=== PATIENT | female | born 2000 | race Two or more races ===

== ENCOUNTER 2020-07-27 18:00 | Outpatient (REF) | payer OTHER, SELFPAY | END 2020-07-27 18:01 | disposition home or self-care (01) | LOC: HO.LAB 18:00 | PROVIDERS: Visit Provider Internal Medicine | DX: Z20.828 Contact with and (suspected) exposure to other viral communicable diseases (principal) | CPT/HCPCS: 87635 ==

== ENCOUNTER 2020-08-16 11:55 | Outpatient (REF) | payer OTHER, SELFPAY | END 2020-08-16 11:56 | disposition home or self-care (01) | LOC: HO.LAB 11:55 | PROVIDERS: PCP Physician Assistant; Visit Provider Internal Medicine | DX: Z20.828 Contact with and (suspected) exposure to other viral communicable diseases (principal) | CPT/HCPCS: 87635 ==

== ENCOUNTER → 2020-09-13 07:57 | Outpatient (BNVA) | payer OTHER, SELFPAY | PROVIDERS: Visit Provider Advanced Practice Midwife | DX: Z76.89 Persons encountering health services in other specified circumstances (principal) ==

== ENCOUNTER 2020-09-25 16:03 | Emergency (ER) | payer OTHER, SELFPAY ==
[2020-09-25 16:34] VITALS: BP 110/71; PULSE 78; RESP 16; TEMP 36.5; O2SAT 99; BMI 26.2
--- NOTE | 2020-09-25 17:40 | ED.GENADULT ---
HPI - General Adult General Chief complaint: General Medical Stated complaint: ABSCESS Time Seen by Provider: 09/25/20 17:28 Source: patient Mode of arrival: ambulatory Limitations: no limitations History of Present Illness HPI narrative: patient comes to emergency room complaining of a circular rash in her upper arm. Patient states it has been present for 1 week, it is slightly itchy, nonpainful. Patient is known to have dogs at home. patient denies fever chills MD complaint: Rash Related Data Previous Rx's Medication Instructions Recorded clotrimazole [Lotrimin AF 1 appl TOPICAL TID #28.4 g 09/25/20 (clotrimazole)] Allergies Allergy/AdvReac Type Severity Reaction Status Date / Time No Known Allergies Allergy Verified 09/13/20 08:09 [No Known Allergies*] Review of Systems Review of Systems: Constitutional : No Weight loss, No Fever, No Chills, No Night Sweats, No Fatigue, No Malaise ENT/Mouth : No Hearing loss, No Ear Pain, No Nasal Congestion, No Sinus Pain, No Hoarseness, No sore throat, No Rhinorrhea, No Swallowing Difficulty Eyes: No Eye Pain, No Swelling, No Redness, No Foreign Body, No Discharge, No Vision Changes Cardiovascular : No Chest Pain, No SOB, No Dyspnea on Exertion, No Orthopnea, No Edema, No Palpitations Respiratory : No Cough, No Sputum, No Wheezing, No Smoke Exposure, No Dyspnea Gastrointestinal : No Nausea, No Vomiting, No Diarrhea, No Constipation, No abdominal Pain, No Hematochezia, No Melena Genitourinary : no irregular bleeding, No Dysuria, No Urinary Frequency, No Hematuria, No Urinary Incontinence, No Urgency, No Flank Pain, No Urinary Flow Changes, No Hesitancy Musculoskeletal : No joint pain, No Myalgias, No Joint Swelling Skin : circular rash and right upper arm Neuro : No Weakness, No Numbness, No Paresthesias, No Loss of Consciousness, No Dizziness, No Headache Psych : No Anxiety/Panic, No Depression, No SI/HI/AH/VH, No Social Issues, Heme/Lymph: No Bruising, No Bleeding,No Lymphadenopathy Endocrine : No Polyuria, No Polydipsia, No Temperature Intolerance PMFSH Past Medical History Medical History (Updated 09/25/20 @ 17:43 by Mitzy Mims MD) Constipation Surgical History No pertinent past surgical history Family History Family History Father Diabetes Mother Hypertension Social History Social History (Updated 09/13/20 @ 08:10 by Nelsy Esparza) Alcohol intake: never Smoking Status: Never smoker Advance Directives: No Advance Directives Information Provided: No Gender identity: female Physical Exam Vital Signs: Vital Signs: Last Vital Signs Temp 97.7 F 09/25/20 16:34 Pulse 78 09/25/20 16:34 Resp 16 09/25/20 16:34 BP 110/71 09/25/20 16:34 Pulse Ox 99 09/25/20 16:34 Body Mass Index 26.2 Appearance: Alert. Oriented X3. No acute distress. Eyes: Pupils equal, round and reactive to light. ENT: Pharynx normal. Neck: Normal inspection. Neck supple. No lymph nodes noted. No crepitus CVS: Normal heart rate and rhythm. Pulses normal. Normal S1 and S2 Respiratory: No respiratory distress. Breath sounds normal. No Wheezing. No rales Abdomen: Soft and nontender. No rigidity. No distention. good BS x4 Skin: circular rash in right upper arm, with erythematous well-demarcated [place] Extremities: No lower extremity edema. No lower extremity edema. No Lacerations. No Rash Neuro: Oriented X 3. No motor deficit. No sensory deficit. Moving all extermities. No slurred speech. Course Course Course Narrative: I discussed the physical exam with the patient, patient's exam is likely consistent with ringworm. I discussed with the patient that she should check her house pets as well. Discussed with the patient that it can be contagious, not to share towels with anyone Discharge Plan Discharge Clinical Impression: Ringworm of body Patient Disposition: Home, Self-Care Instructions: Tinea Corporis (ED) Additional Instructions: he will take 1-3 weeks to heal, please check your house pets for similar rash Prescriptions: New clotrimazole [Lotrimin AF (clotrimazole)] 1 % cream 1 appl topical TID Qty: 28.4 RF: 0
== END 2020-09-25 18:00 | disposition home or self-care (01) ==
PROVIDERS: Emergency Provider Emergency Medicine; PCP Physician Assistant
DX: B35.4 Tinea corporis (principal)
CPT/HCPCS: 99283

== ENCOUNTER 2021-07-05 16:50 | Emergency (ER) | payer OTHER, SELFPAY ==
--- NOTE | ~2021-07-05 | CT_ITS ---
EXAMINATION: CT ABDOMEN AND PELVIS WITH CONTRAST CLINICAL INFORMATION: periumbilicul pain, r/o acute appy COMPARISON: None. TECHNIQUE: Multidetector volumetric imaging was performed from the superior aspect of the liver through the pubic symphysis following administration of 85 cc of Omnipaque intravenous contrast Sagittal and coronal reformatted images were obtained on the technologist workstation.. This CT examination was performed using dose optimization techniques as appropriate, variously including the following: *Automated exposure control *Adjustment of mA and/or kV according to patient size (this includes techniques or standardized protocols for targeted exams where dose is matched to indication/reason for exam; i.e. extremities or head) *Use of iterative reconstruction technique DLP: 458 mGy-cm FINDINGS: LUNG BASES: The visualized lung bases are unremarkable. LIVER, GALLBLADDER, AND BILIARY TREE: The liver is normal in size, shape, and attenuation. No focal hepatic lesion or biliary ductal dilatation is present. The gallbladder is contracted but otherwise unremarkable with no evidence of radiopaque gallstones, gallbladder wall thickening, or obvious pericholecystic inflammatory changes. PANCREAS: Unremarkable. SPLEEN: Unremarkable. ADRENAL GLANDS: Unremarkable. KIDNEYS AND URETERS: The kidneys are normal in size, shape, and attenuation. No hydronephrosis, hydroureter, or calculi seen. No perinephric stranding. BLADDER: Unremarkable. GASTROINTESTINAL TRACT: Normal-appearing appendix in the right lower quadrant. No periappendiceal inflammatory changes. ABDOMINAL WALL: No significant hernia is appreciated. LYMPHOVASCULAR STRUCTURES: No lymphadenopathy. The aorta is unremarkable. PELVIC VISCERA: Small amount of complex free fluid in the dependent pelvis. Physiologic changes seen within the adnexa with a 2.9 cm right adnexal cyst. OSSEOUS STRUCTURES: Unremarkable. CT/CT abdomen pelvis w con IMPRESSION: Small amount of complex fluid layering in the dependent pelvis is suggestion of increased density along the dependent-most aspect. This could represent a small amount of blood products possibly due to a hemorrhagic cyst. There is a 2.9 cm right adnexal cyst noted. Normal-appearing appendix in the right lower quadrant.
[2021-07-05 18:44] VITALS: BP 122/62; PULSE 66; RESP 16; TEMP 36.3; O2SAT 99; BMI 22.3
[2021-07-05 19:37] LABS: MANUAL DIFF FLAG NO
[2021-07-05 19:38] LABS: Basophils Absolute Auto 0.1 X10*3/uL (0.0-0.2); Basophils Percent Auto 0.7 % (0-2); Eosinophils Absolute Auto 0.3 X10*3/uL (0.0-0.4); Eosinophils Percent Auto 3.6 % (0-4); Hemoglobin 13.5 g/dl (12.0-16.0); Imm Gran Abs Auto 0.02 X10*3/uL (0.00-0.03); Imm Gran Pct Auto 0.3 % (0.0-0.4); Lymphocytes Absolute Auto 2.9 X10*3/uL (1.2-4.9); Lymphocytes Percent Auto 38.7 % (20-40); Mean Corpuscular HGB Conc 33.8 g/dl (31.0-35.0); Mean Corpuscular Hemoglobin 29.8 pg (27.0-33.0); Mean Corpuscular Volume 88.3 fL (80-98); Mean Platelet Volume 11.4 fL (9.4-12.3); Monocytes Absolute Auto 0.5 X10*3/uL (0.1-1.2); Neutrophils Absolute Auto 3.7 X10*3/uL (2.0-8.3); Neutrophils Percent Auto 49.7 % (45-73); Platelet Count 223 X10*3/uL (160-400); Red Blood Count 4.53 X10*6/uL (4.20-5.50); Red Cell Distribution Width 11.9 % (11.0-16.0); White Blood Count 7.5 X10*3/uL (4.8-10.8)
[2021-07-05 19:52] LABS: Alanine Aminotransferase 35 U/L (0-31); Albumin Level 4.5 g/dL (3.5-5.0); Alkaline Phosphatase 53 U/L (39-117); Anion Gap 12 (12-20); Aspartate Amino Transferase 37 U/L (5-31); Bilirubin Total 0.4 mg/dL (0.0-1.0); Blood Urea Nitrogen 16 mg/dL (9-16); Calcium 9.5 mg/dL (8.4-10.2); Carbon Dioxide 26 mmol/L (22-29); Chloride 107 mmol/L (96-108); Creatinine Clr Calc Pharmacy 96.8; Estimated Glomerular Filt Rate > 60; Glucose Random 82 mg/dL (60-115); Potassium 4.3 mmol/L (3.3-5.1); Sodium 141 mmol/L (135-145); Total Protein 7.4 g/dL (6.5-8.0)
[2021-07-05 19:53] LABS: Appearance Urine HAZY; Color Urine YELLOW; Glucose Urine UA NEG (NEG); Leukocyte Esterase Urine 2+ (NEG); Nitrite Urine NEG (NEG); PH 6.5 (5.0-8.0); Specific Gravity - Urine 1.015 (1.005-1.025); UACC Culture Trigger YES; Urine Blood NEG (NEG); Urine Ketones NEG (NEG); Urine Protein NEG (NEG-TRACE)
[2021-07-05 20:05] LABS: Squamous Epithelial Cell Urine 2+ /LPF
[2021-07-05 20:06] LABS: Bacteria Urine 1+ /LPF; RBC Urine 0 /HPF (0)
[2021-07-05] MEDS: Famotidine/PF 20 MG/2 ML VIAL IVPUSH (20:07)
[2021-07-05] MEDS: Morphine Sulfate 2 MG/ML CARTRIDGE IVPUSH (20:07)
--- NOTE | 2021-07-05 20:22 | ED_ITS ---
HPI - Abdominal Pain General Chief Complaint: Abdominal Pain Stated Complaint: abdominal pain Time Seen by Provider: 07/05/21 19:30 Source: patient Mode of arrival: ambulatory Limitations: no limitations History of Present Illness HPI narrative: 21-year-old female previously healthy here with complaints of abdominal pain around her belly button since last evening now migrating to her lower abdomen. She has had some nausea but denies vomiting. No fevers or chills or urinary symptoms. No diarrhea or constipation. Related Data Previous Rx's Medication Instructions Recorded ibuprofen 600 mg tablet 600 mg PO Q6H PRN #20 tab 07/05/21 oxycodone 5 mg tablet 5 mg PO Q8H PRN #5 tab 07/05/21 Allergies Allergy/AdvReac Type Severity Reaction Status Date / Time No Known Allergies Allergy Verified 04/11/21 14:30 [No Known Allergies*] Review of Systems Review of Systems Yes all other systems are reviewed and are negative Constitutional: Reports no additional constitutional complaints, Denies body ache(s), Denies chills, Denies fever(s), Denies headache(s) and Denies weakness Eyes: Reports no additional eye complaints and Denies change in vision Reports system reviewed and no additional complaints, except as documented, Denies dizziness, Denies headache(s), Denies nasal congestion, Denies nasal discharge and Denies neck pain Cardiovascular: Reports no additional cardiovascular complaints, Denies chest pain, Denies leg edema and Denies dyspnea Respiratory: Reports no additional respiratory complaints, Denies cough and Denies dyspnea Gastrointestinal: Reports no additional gastrointestinal complaints, Reports abdominal pain, Denies diarrhea, Denies nausea and Denies vomiting Genitourinary: Reports no additional female genitourinary complaints and Denies urinary incontinence Musculoskeletal: Reports no additional musculoskeletal complaints, Denies back pain, Denies arthralgias, Denies joint swelling, Denies neck pain, Denies numbness and Denies tingling Skin/Breast: Reports system reviewed and no additional complaints, except as docu and Denies rash Reports system reviewed and no additional complaints, except as documented, Denies Abnormal speech present, Denies dizziness, Denies headache(s), Denies numbness, Denies tingling and Denies weakness Physical Exam Vital Signs: Vital Signs: Last Vital Signs Temp 97.4 F 07/05/21 18:44 Pulse 66 07/05/21 18:44 Resp 16 07/05/21 18:44 BP 122/62 07/05/21 18:44 Pulse Ox 99 07/05/21 18:44 Body Mass Index 22.3 Const: General: cooperative, healthy appearing, comfortable and no acute distress Orientation/consciousness: patient oriented x3 Limitations: no limitations HENMT: Head: Yes normal to inspection Ears: hearing grossly normal bilaterally General nose exam: Normal external nose present Face and sinus: Yes normal facial exam Mouth: Normal oral and palatal mucosa present Throat: Yes posterior oropharynx normal Eyes: General: appearance normal, both eyes and all related structures Pupils: Equal, round and reactive pupils present Neck: Neck: Yes normal visual inspection Chest: Chest palpation & inspection: normal inspection of the chest Resp: Effort & Inspection: normal respiratory effort Auscultation: clear to auscultation bilaterally Cardio: Rate: regular rate Rhythm: regular rhythm Peripheral pulses: Peripheral pulses 2+ throughout GI: Inspection: Yes normal to inspection Palpation (GI): Soft to palpation and Tenderness to palpation present (GI) (Periumbilical with guarding, right lower) Auscultation: normal bowel sounds Back/Spine/Pelvis: Thoracic/Lumbar Spine: thoracic and lumbar spine normal to inspection Skin: General skin exam: no rashes or lesions noted Neuro: General: patient oriented x3, no focal motor deficits and normal sensation to monofilament Cranial nerves: Yes Equal, round and reactive pupils present Cognition (Neuro): normal cognition Speech: No Abnormal speech present Gait exam (Neuro): Normal gait present Motor exam (neuro): 5/5 motor strength present throughout Extrem: General: Yes normal to inspection, Yes no pedal edema and Yes no calf tenderness Course Course Course Narrative: 21-year-old female here with complaints of periumbilical pain since last evening now migrating to the right lower abdomen. On exam has tenderness. Will check labs, UA, urine and CT scan. 2200-CT shows IMPRESSION: Small amount of complex fluid layering in the dependent pelvis is suggestion of increased density along the dependent-most aspect. This could represent a small amount of blood products possibly due to a hemorrhagic cyst. There is a 2.9 cm right adnexal cyst noted. ? Normal-appearing appendix in the right lower quadrant. Labs and urine unremarkable. Pain resolved. Tolerating p.o. Will refer to Gynecology for follow-up. Reviewed worrisome signs symptoms of when to return to the emergency department. Comfortable discharge home. MDM - Abdominal Pain Differential Diagnosis Differential diagnosis: Likely acute appendicitis Medical Records Attestation: I reviewed the patient's medical records. Lab Data Attestation: I reviewed the patient's lab results. Result diagrams: 07/05/21 19:26 07/05/21 19:26 Labs: Lab Results 07/05/21 07/05/21 07/05/21 Range/Units 19:26 19:26 19:48 WBC 7.5 (4.8-10.8) X10*3/uL RBC 4.53 (4.20-5.50) X10*6/uL Hgb 13.5 (12.0-16.0) g/dl Hct 40.0 (37-47) % MCV 88.3 (80-98) fL MCH 29.8 (27.0-33.0) pg MCHC 33.8 (31.0-35.0) g/dl RDW 11.9 (11.0-16.0) % Plt Count 223 (160-400) X10*3/uL MPV 11.4 (9.4-12.3) fL Immature Gran % (Auto) 0.3 (0.0-0.4) % Neut % (Auto) 49.7 (45-73) % Lymph % (Auto) 38.7 (20-40) % [place] % (Auto) 7.0 (2-11) % Eos % (Auto) 3.6 (0-4) % Baso % (Auto) 0.7 (0-2) % Lymph # (Auto) 2.9 (1.2-4.9) X10*3/uL [place] # (Auto) 0.5 (0.1-1.2) X10*3/uL Eos # (Auto) 0.3 (0.0-0.4) X10*3/uL Baso # (Auto) 0.1 (0.0-0.2) X10*3/uL Abs Immat Gran (auto) 0.02 (0.00-0.03) X10*3/uL Absolute Neuts (auto) 3.7 (2.0-8.3) X10*3/uL Absolute Nucleated RBC 0.000 (0.0-0.012) X10*3/uL Nucleated RBC % (auto) 0.0 (0.0-0.2) /100WBC Sodium 141 (135-145) mmol/L Potassium 4.3 (3.3-5.1) mmol/L Chloride 107 (96-108) mmol/L Carbon Dioxide 26 (22-29) mmol/L Anion Gap 12 (12-20) BUN 16 (9-16) mg/dL Creatinine 0.78 (0.5-1.4) mg/dL Estim Creat Clear Calc 96.8 Estimated GFR > 60 Random Glucose 82 (60-115) mg/dL Calcium 9.5 (8.4-10.2) mg/dL Total Bilirubin 0.4 (0.0-1.0) mg/dL Direct Bilirubin (0.0-0.5) mg/dL AST 37 H (5-31) U/L ALT 35 H (0-31) U/L Alkaline Phosphatase 53 (39-117) U/L Total Protein 7.4 (6.5-8.0) g/dL Albumin 4.5 (3.5-5.0) g/dL Lipase (8-78) U/L Urine Color YELLOW Urine Appearance HAZY Urine pH 6.5 (5.0-8.0) Ur Specific [place] 1.015 (1.005-1.025) Urine Protein NEG (NEG-TRACE) MG/DL Urine Glucose (UA) NEG (NEG) MG/DL Urine Ketones NEG (NEG) MG/DL Urine Blood NEG (NEG) Urine Nitrite NEG (NEG) Ur Leukocyte Esterase 2+ H (NEG) Urine RBC 0 (0) /HPF Urine WBC 1-4 (0-4) /HPF Ur Squamous Epith Cells 2+ /LPF Urine Bacteria 1+ /LPF Urine Test (NEGATIVE) 07/05/21 07/05/21 Range/Units 20:06 20:32 WBC (4.8-10.8) X10*3/uL RBC (4.20-5.50) X10*6/uL Hgb (12.0-16.0) g/dl Hct (37-47) % MCV (80-98) fL MCH (27.0-33.0) pg MCHC (31.0-35.0) g/dl RDW (11.0-16.0) % Plt Count (160-400) X10*3/uL MPV (9.4-12.3) fL Immature Gran % (Auto) (0.0-0.4) % Neut % (Auto) (45-73) % Lymph % (Auto) (20-40) % [place] % (Auto) (2-11) % Eos % (Auto) (0-4) % Baso % (Auto) (0-2) % Lymph # (Auto) (1.2-4.9) X10*3/uL [place] # (Auto) (0.1-1.2) X10*3/uL Eos # (Auto) (0.0-0.4) X10*3/uL Baso # (Auto) (0.0-0.2) X10*3/uL Abs Immat Gran (auto) (0.00-0.03) X10*3/uL Absolute Neuts (auto) (2.0-8.3) X10*3/uL Absolute Nucleated RBC (0.0-0.012) X10*3/uL Nucleated RBC % (auto) (0.0-0.2) /100WBC Sodium (135-145) mmol/L Potassium (3.3-5.1) mmol/L Chloride (96-108) mmol/L Carbon Dioxide (22-29) mmol/L Anion Gap (12-20) BUN (9-16) mg/dL Creatinine (0.5-1.4) mg/dL Estim Creat Clear Calc Estimated GFR Random Glucose (60-115) mg/dL Calcium (8.4-10.2) mg/dL Total Bilirubin 0.4 (0.0-1.0) mg/dL Direct Bilirubin 0.2 (0.0-0.5) mg/dL AST 34 H (5-31) U/L ALT 33 H (0-31) U/L Alkaline Phosphatase 49 (39-117) U/L Total Protein 6.8 (6.5-8.0) g/dL Albumin 4.2 (3.5-5.0) g/dL Lipase 33 (8-78) U/L Urine Color Urine Appearance Urine pH (5.0-8.0) Ur Specific [place] (1.005-1.025) Urine Protein (NEG-TRACE) MG/DL Urine Glucose (UA) (NEG) MG/DL Urine Ketones (NEG) MG/DL Urine Blood (NEG) Urine Nitrite (NEG) Ur Leukocyte Esterase (NEG) Urine RBC (0) /HPF Urine WBC (0-4) /HPF Ur Squamous Epith Cells /LPF Urine Bacteria /LPF Urine Test NEGATIVE (NEGATIVE) Imaging Data CT scan - abdomen: Attestation: I personally reviewed and interpreted this imaging study as follows: Radiologist's impression: IMPRESSION: Small amount of complex fluid layering in the dependent pelvis is suggestion of increased density along the dependent-most aspect. This could represent a small amount of blood products possibly due to a hemorrhagic cyst. There is a 2.9 cm right adnexal cyst noted. ? Normal-appearing appendix in the right lower quadrant. Discharge Plan Discharge Clinical Impression: Hemorrhagic cyst Patient Disposition: Home, Self-Care Instructions: Ovarian Cyst (ED) Additional Instructions: Follow-up with gynecology Heat to the abdomen Prescriptions: New ibuprofen 600 mg tablet 600 mg PO Q6H PRN (Reason: pain) Qty: 20 RF: 0 oxycodone 5 mg tablet 5 mg PO Q8H PRN (Reason: pain) Qty: 5 RF: 0 Referrals: Jone Atwood MD [Physician] - 2 days Stand Alone Forms: Work/School Release Interventions: ED Discharge Assessment Last Done: 07/05/21 22:02 Discharge Date/Time: 07/05/21 22:03 Print Language: [place] [facility] Past Medical History Attestation statement: The following information was validated with the patient. Source: old records reviewed and nursing notes reviewed Medical History Constipation Family History Family History Father Diabetes Mother Hypertension Other Substance abuse Social History Social History Housing: Apartment Alcohol intake: never Patient Tobacco Use Status: Never used Tobacco e-Cigarette/Vaping Use: Never Used Second Hand Smoke Exposure: No Advance Directives: No Advance Directives Information Provided: No Patient : No service: No Current occupational status: employed Current occupation: [employer] Gender identity: Female
[2021-07-05 20:35] LABS: Alanine Aminotransferase 33 U/L (0-31); Albumin Level 4.2 g/dL (3.5-5.0); Alkaline Phosphatase 49 U/L (39-117); Aspartate Amino Transferase 34 U/L (5-31); Bilirubin Direct 0.2 mg/dL (0.0-0.5); Bilirubin Total 0.4 mg/dL (0.0-1.0); Lipase 33 U/L (8-78); Total Protein 6.8 g/dL (6.5-8.0)
[2021-07-05 20:47] LABS: UPreg QC Valid YES; Urine Pregnancy NEGATIVE (NEGATIVE)
[2021-07-05] MEDS: iohexoL 350 MG/ML 100 ML INFUS..BTL IV (21:12)
== END 2021-07-05 22:03 | disposition home or self-care (01) ==
PROVIDERS: Nurse Practitioner Family; Emergency Provider Emergency Medicine Emergency Medical Services; PCP Physician Assistant
DX: R10.9 Unspecified abdominal pain (principal); N94.89 Other specified conditions associated with female genital organs and menstrual cycle; N83.8 Other noninflammatory disorders of ovary, fallopian tube and broad ligament; Z79.899 Other long term (current) drug therapy
CPT/HCPCS: 36415; 74177; 80053; 80076; 81001; 81025; 82248; 83690; 85025; 87086; 96374; 96375; 99284; J2270; Q9967

== ENCOUNTER 2021-08-09 08:06 | Outpatient (REF) | payer OTHER, SELFPAY ==
[2021-08-09 14:13] LABS: CT PCR NOT DETECTED (Not Detect.); NG PCR NOT DETECTED (Not Detect.)
== END 2021-08-09 08:07 | disposition home or self-care (01) ==
LOC: HO.LAB 08:06
PROVIDERS: PCP Physician Assistant; Visit Provider Obstetrics & Gynecology
DX: Z11.3 Encounter for screening for infections with a predominantly sexual mode of transmission (principal); N83.209 Unspecified ovarian cyst, unspecified side; R79.89 Other specified abnormal findings of blood chemistry
CPT/HCPCS: 81003; 81025; 87491; 87591; 99212

== ENCOUNTER 2021-08-29 11:19 | Outpatient (REF) | payer OTHER, SELFPAY ==
--- NOTE | ~2021-08-29 | US_ITS ---
EXAMINATION: US PELVIS CLINICAL INFORMATION: Follow-up ovarian cyst. COMPARISON: CT abdomen and pelvis from 07/05/2021 TECHNIQUE: Sonographic imaging of the pelvis was performed using a transabdominal transducer. The registered vascular technologist (rvt) reports that the patient refused transvaginal imaging. FINDINGS: Uterus: The anteflexed, anteverted uterus measures 7.3 x 3.5 x 5.4 cm (cervix to fundus x AP x transverse dimensions). The myometrial echotexture is normal. No uterine mass. The endometrium has normal, homogeneous echotexture and measures 1.1 cm AP. Adnexa: The ovaries are normal. The right ovary measures 3.9 x 1.7 x 2.9 cm, volume of 9.8 mL. A partially collapsed corpus luteum of the right ovary measures up to 1.3 cm (image 51 of 102, series 2). The left ovary measures 4.2 x 1.8 x 3.3 cm, volume of 13 mL. No ovarian mass. Color Doppler images show evidence of arterial flow within each ovary. Small amount of free fluid is present in the pelvis. US/US pelvic complete IMPRESSION: The uterus and ovaries are sonographically normal.
== END 2021-08-29 11:20 | disposition home or self-care (01) ==
LOC: HO.US 11:19
PROVIDERS: PCP Physician Assistant; Visit Provider Obstetrics & Gynecology
DX: N83.209 Unspecified ovarian cyst, unspecified side (principal)
CPT/HCPCS: 76856

== ENCOUNTER → 2021-09-12 15:47 | Outpatient (BNVA) | payer OTHER, SELFPAY | PROVIDERS: Visit Provider Obstetrics & Gynecology | DX: N83.209 Unspecified ovarian cyst, unspecified side (principal) | CPT/HCPCS: 99212 ==

== ENCOUNTER 2021-12-28 07:27 | Outpatient (REF) | payer OTHER, SELFPAY ==
[2021-12-28 08:59] LABS: INTERNATIONAL NORM RATIO 1.1 (0.9-1.1); Prothrombin Time 12.1 SEC (9.9-13.0)
[2021-12-28 10:12] LABS: Alanine Aminotransferase 71 U/L (0-31); Albumin Level 4.2 g/dL (3.5-5.0); Alkaline Phosphatase 51 U/L (39-117); Anion Gap 10 (12-20); Aspartate Amino Transferase 255 U/L (5-31); Bilirubin Direct 0.2 mg/dL (0.0-0.5); Bilirubin Total 0.6 mg/dL (0.0-1.0); Blood Urea Nitrogen 13 mg/dL (9-16); Calcium 9.1 mg/dL (8.4-10.2); Carbon Dioxide 26 mmol/L (22-29); Chloride 106 mmol/L (96-108); Estimated Glomerular Filt Rate > 60; Glucose Random 73 mg/dL (60-115); Potassium 4.6 mmol/L (3.3-5.1); Sodium 137 mmol/L (135-145); Total Protein 6.9 g/dL (6.5-8.0)
[2021-12-28 10:33] LABS: Ferritin 64 ng/mL (10-122); Gamma Glutamyl Transpeptidase 11 U/L (7-33)
[2021-12-28 10:41] LABS: HBS Num1 20.24 mIU/mL (0-7.99); HBc Num1 0.06 S/CO (0.00-0.79); Hepatitis B Core Antibody Nonreactive (Nonreactive); ~HepC Num1 0.07 S/CO (0.00-0.79); ~Hepatitis B Surface Antibody REACTIVE (Nonreactive); ~Hepatitis C Antibody Nonreactive (Nonreactive)
[2021-12-28 10:42] LABS: HBsAGNum1 0.22 S/CO (0.00-0.99); HIV AB/AG Nonreactive (Nonreactive); HIV Num 1 0.06 S/CO (0.00-0.99); Hepatitis B Surface Antigen Negative (Negative)
[2021-12-29 09:02] LABS: Hepatitis A Antibody IgM 0.17 Index (0-0.79); ~Hepatitis A Antibody IgM Nonreactive (Nonreactive)
[2021-12-30 11:41] LABS: Ceruloplasmin 28 mg/dL (18-53)
[2022-01-01 13:21] LABS: Alpha Fetoprotein 2.3 ng/mL
[2022-01-02 13:42] LABS: Smooth Muscle Antibody <20 U (<20)
[2022-01-02 15:11] LABS: Mitochondrial Antibodies NEGATIVE (NEGATIVE)
== END 2021-12-28 07:28 | disposition home or self-care (01) ==
LOC: HO.LAB 07:27
PROVIDERS: PCP Physician Assistant; Referring Provider Physician Assistant; Visit Provider Nurse Practitioner
DX: R79.89 Other specified abnormal findings of blood chemistry (principal); K21.9 Gastro-esophageal reflux disease without esophagitis; R19.7 Diarrhea, unspecified
CPT/HCPCS: 36415; 80053; 82105; 82248; 82390; 82728; 82977; 85610; 86015; 86255; 86256; 86704; 86706; 86709; 86803; 87340; 87389; 99202

== ENCOUNTER 2022-01-23 08:56 | Outpatient (REF) | payer OTHER, SELFPAY | END 2022-01-23 08:57 | disposition home or self-care (01) | LOC: HO.US 08:56 | PROVIDERS: Visit Provider Nurse Practitioner | DX: Z13.89 Encounter for screening for other disorder (principal) ==

== ENCOUNTER 2022-02-13 10:29 | Outpatient (REF) | payer OTHER, SELFPAY ==
--- NOTE | ~2022-02-13 | US_ITS ---
EXAMINATION: US COMPLETE ABDOMEN WITH LIVER ELASTOGRAPHY CLINICAL INFORMATION: Elevated liver enzymes COMPARISON: No prior studies available for comparison. TECHNIQUE: Real-time imaging of the abdominal viscera. Noninvasive ultrasound liver fibrosis assessment is performed using Nate ElastPQ point quantification shear wave elastography (2D-SWE) with a C5-2 MHz transducer. Multiple elastography samples are obtained. FINDINGS: PANCREAS: The visualized portion of the pancreas head and body are normal, portion of the pancreatic body and tail, not visualized are obscured by bowel gas. ABDOMINAL AORTA: The proximal, middle, and distal aortic segments are normal in caliber. INFERIOR VENA CAVA: Visualized portions are normal. LIVER: Mildly echogenic liver suggesting hepatic steatosis, no ultrasound evidence of focal liver lesion. The right lobe measures 13 cm in length. The left lobe measures 11 cm in length. Portal flow is hepatopedal Shear wave liver elastography median stiffness is 1.85 m/s (reference: normal median stiffness is 1.3 m/s or less). IQR/median stiffness to assess sampling precision is 0.14 (reference: good quality data set is IQR/median stiffness of 0.15 or less). GALLBLADDER: Normal. The gallbladder is physiologically distended without evidence of stones, sludge, polyps, wall thickening or pericholecystic fluid. COMMON BILE DUCT: Normal in caliber measuring 0.2 cm in diameter. RIGHT KIDNEY: Normal. No hydronephrosis. No renal calculi or focal parenchymal lesions. The kidney measures 12.6 cm in maximum dimension. LEFT KIDNEY: Normal. No hydronephrosis. No renal calculi or focal parenchymal lesions. The kidney measures 12.3 cm in maximum dimension. SPLEEN: Normal. The spleen measures 11 cm in maximum dimension. FREE FLUID: None. US/US abdomen comp w elastography IMPRESSION: 1. . Increased echogenicity of the liver parenchyma, this can be seen in the setting of hepatic steatosis or liver parenchymal disease. 2. Liver elastography: 1.85 Measurements are suggestive of compensated advanced chronic liver disease but need further test for confirmation. REFERENCE: Society of Radiologists in Ultrasound Liver Stiffness Thresholds (2019): LIVER STIFFNESS THRESHOLDS: *Liver Stiffness equal or less than 1.3 m/s: High probability of being normal. *Liver Stiffness less than 1.7 m/s: In the absence of other known clinical signs, rules out compensated advanced chronic liver disease. *Liver Stiffness 1.7-2.1 m/s: Suggestive of compensated advanced chronic liver disease but need further test for confirmation. *Liver Stiffness over 2.1 m/s: Rules in compensated advanced chronic liver disease. *Liver Stiffness over 2.4 m/s: Suggestive of clinically significant portal hypertension. QUALITY OF DATA SET: *IQR/Median value equal or less than 0.15 implies a quality data set. *IQR/Median value over 0.15 implies a poor quality data set. SIGNIFICANT CHANGE FROM PRIOR EXAM: Significant change if liver stiffness measurement is 10% or greater from prior exam. OTHER CONSIDERATIONS: The stage of liver fibrosis may be overestimated in the setting of acute hepatitis, liver inflammation, elevated liver function tests, hepatic vascular congestion, obstructive cholestasis, non-fasting state, and infiltrative diseases such as amyloidosis and lymphoma. In some patients with NAFLD, the liver stiffness thresholds for compensated advanced chronic liver disease may be lower. In causes other than viral hepatitis and NAFLD, liver stiffness thresholds are not well established.
== END 2022-02-13 10:30 | disposition home or self-care (01) ==
LOC: HO.US 10:29
PROVIDERS: Visit Provider Nurse Practitioner
DX: R79.89 Other specified abnormal findings of blood chemistry (principal)
CPT/HCPCS: 76705; 76981

== ENCOUNTER 2022-03-08 07:07 | Outpatient (REF) | payer OTHER, SELFPAY ==
[2022-03-08 09:05] LABS: Alanine Aminotransferase 46 U/L (0-31); Albumin Level 4.3 g/dL (3.5-5.0); Alkaline Phosphatase 50 U/L (39-117); Aspartate Amino Transferase 68 U/L (5-31); Bilirubin Direct 0.2 mg/dL (0.0-0.5); Bilirubin Total 0.5 mg/dL (0.0-1.0); Total Protein 7.1 g/dL (6.5-8.0)
[2022-03-08 09:16] LABS: Monotest Negative (Negative)
[2022-03-10 05:02] LABS: EBV-NA IgG Index >600.00 U/mL; EBV-VCA IgM Ab <36.00 U/mL
[2022-03-10 11:36] LABS: IgA 169 mg/dL (47-310); IgG 1288 mg/dL (600-1640); IgM 137 mg/dL (50-300)
[2022-03-10 14:46] LABS: Alpha 1 Anti-trypsin 113 mg/dL (83-199)
[2022-03-12 12:56] LABS: Anti Nuclear Antibody Pattern Nuclear, Speckled; Anti Nuclear Antibody Screen POSITIVE (NEGATIVE); Anti Nuclear Antibody Titer 1:40 titer
== END 2022-03-08 07:08 | disposition home or self-care (01) ==
LOC: HO.LAB 07:07
PROVIDERS: PCP Physician Assistant; Referring Provider Physician Assistant; Visit Provider Nurse Practitioner
DX: R79.89 Other specified abnormal findings of blood chemistry (principal)
CPT/HCPCS: 36415; 80076; 82103; 82784; 86038; 86039; 86308; 86664; 86665; 99212

== ENCOUNTER → 2022-04-19 07:10 | Outpatient (BNVA) | payer OTHER, SELFPAY | PROVIDERS: PCP Physician Assistant; Referring Provider Physician Assistant; Visit Provider Nurse Practitioner | DX: R79.89 Other specified abnormal findings of blood chemistry (principal) | CPT/HCPCS: 99212 ==

== ENCOUNTER 2022-04-30 07:30 | Day surgery (SDC) | payer OTHER, SELFPAY ==
[2022-04-30] VITALS (8 sets, daily range): BP systolic 92–109; BP diastolic 45–64; PULSE 46–70; RESP 15–19; TEMP 36.6; O2SAT 97–99; BMI 25.4
--- NOTE | ~2022-04-30 | US_ITS ---
EXAMINATION: ULTRASOUND-GUIDED LIVER BIOPSY CLINICAL INFORMATION: Elevated liver function tests. ODELL. COMPARISON: Previous ultrasound 01/2022. TECHNIQUE: Procedure and risks and benefits, including bleeding and infection, were discussed with the patient and informed consent was obtained. The patient was positioned in the left decubitus position. The right upper quadrant was prepped and draped in usual sterile fashion. The skin and soft tissues were anesthetized with 1% lidocaine plain. Using ultrasound guidance and a coaxial system, access to the right lobe of the liver was obtained. Three 20-gauge core biopsies were obtained. There is no complication. Patient received Versed 1 mg and fentanyl 50 mcg intravenously during the procedure. Conscious sedation was provided by a registered nurse under my direct supervision with continuous hemodynamic monitoring. Total sedation time was 15 minutes. FINDINGS: Liver echotexture is slightly increased. No ascites or hematoma is seen post liver biopsy. US/US biopsy liver IMPRESSION: Ultrasound-guided liver biopsy.
[2022-04-30 08:01] LABS: UPreg QC Valid YES; Urine Pregnancy NEGATIVE (NEGATIVE)
[2022-04-30 08:24] LABS: Basophils Absolute Auto 0.1 X10*3/uL (0.0-0.2); Basophils Percent Auto 0.9 % (0-2); Eosinophils Absolute Auto 0.2 X10*3/uL (0.0-0.4); Eosinophils Percent Auto 3.9 % (0-4); Hematocrit 39.8 % (37.0-47.0); Hemoglobin 13.4 g/dl (12.0-16.0); Imm Gran Abs Auto 0.01 X10*3/uL (0.00-0.03); Imm Gran Pct Auto 0.2 % (0.0-0.4); Lymphocytes Absolute Auto 2.2 X10*3/uL (1.2-4.9); Lymphocytes Percent Auto 41.6 % (20-40); MANUAL DIFF FLAG NO; Mean Corpuscular HGB Conc 33.7 g/dl (31.0-35.0); Mean Corpuscular Hemoglobin 29.7 pg (27.0-33.0); Mean Corpuscular Volume 88.2 fL (80.0-98.0); Mean Platelet Volume 10.8 fL (9.4-12.3); Monocytes Absolute Auto 0.4 X10*3/uL (0.1-1.2); Monocytes Percent Auto 7.9 % (2-11); Neutrophils Absolute Auto 2.4 x10*3/uL (2.0-8.3); Neutrophils Percent Auto 45.5 % (45-73); Platelet Count 209 X10*3/uL (160-400); Red Blood Count 4.51 X10*6/uL (4.20-5.50); Red Cell Distribution Width 11.8 % (11.0-16.0); White Blood Count 5.3 X10*3/uL (4.8-10.8)
[2022-04-30 08:30] LABS: Prothrombin Time 11.7 SEC (10.0-13.1)
[2022-04-30 08:33] LABS: Partial Thromboplastin Time 33.2 SEC (24.1-38.0)
--- NOTE | 2022-04-30 09:40 | HO.RADPN ---
RADIOLOGY Narrative Narrative: Right lobe liver biopsy. 3 20 g specimens. No complication.
[2022-04-30] MEDS: Lidocaine HCl 1 % MPF 5 ML VIAL SUBCUT (09:46)
== END 2022-04-30 12:07 | disposition home or self-care (01) ==
PROVIDERS: PCP Physician Assistant; Visit Provider Radiology Diagnostic Radiology
DX: K75.81 Nonalcoholic steatohepatitis (NASH) (principal); K74.00 Hepatic fibrosis, unspecified; K75.9 Inflammatory liver disease, unspecified; K59.00 Constipation, unspecified
CPT/HCPCS: 36415; 47000; 76942; 81025; 85025; 85610; 85730; 88307; 88313; 99152; J2250; J3010

== ENCOUNTER 2022-05-24 09:22 | Outpatient (REF) | payer OTHER, SELFPAY ==
[2022-05-24 10:26] LABS: Alanine Aminotransferase 18 U/L (0-31); Albumin Level 4.7 g/dL (3.5-5.0); Alkaline Phosphatase 53 U/L (39-117); Anion Gap 14 (12-20); Aspartate Amino Transferase 21 U/L (5-31); Bilirubin Total 0.5 mg/dL (0.0-1.0); Blood Urea Nitrogen 11 mg/dL (9-16); Calcium 9.5 mg/dL (8.4-10.2); Carbon Dioxide 29 mmol/L (22-29); Chloride 103 mmol/L (96-108); Estimated Glomerular Filt Rate > 60; Glucose Random 55 mg/dL (60-115); Potassium 4.6 mmol/L (3.3-5.1); Sodium 141 mmol/L (135-145); Total Protein 7.7 g/dL (6.5-8.0)
[2022-05-25 13:21] LABS: Alpha Fetoprotein 2.7 ng/mL
== END 2022-05-24 09:23 | disposition home or self-care (01) ==
LOC: HO.LAB 09:22
PROVIDERS: PCP Physician Assistant; Visit Provider Nurse Practitioner
DX: R79.89 Other specified abnormal findings of blood chemistry (principal)
CPT/HCPCS: 36415; 80053; 82105; 99212

== ENCOUNTER 2023-03-08 17:43 | Emergency (ER) | payer OTHER, SELFPAY ==
[2023-03-08 17:52] VITALS: BP 149/83; PULSE 125; RESP 18; TEMP 36.7; O2SAT 97; BMI 29.7
--- NOTE | 2023-03-08 18:16 | ED.ALLEREA ---
HPI - Allergic Reaction General Chief complaint: Allergic Reaction Stated complaint: ALLERGIC REACTION Time Seen by Provider: 03/08/23 17:52 Source: patient Mode of arrival: EMS Limitations: no limitations History of Present Illness HPI narrative: Comes emergency room with multiple complaints. Patient states that this morning she woke up with a rash in her thighs middle aspect. She went to work, then she started feeling that she had an itchy throat, took Benadryl, then started becoming anxious, having palpitations, then she says the the left arm became numb and then the other arm became numb, and then she started feeling dizzy but she is not dizzy anymore, denies chest pain or shortness of breath. Related Data Previous Rx's Medication Instructions Recorded omeprazole 20 mg capsule,delayed 20 mg PO DAILY PRN acid reflux #90 10/30/22 release caps Allergies Allergy/AdvReac Type Severity Reaction Status Date / Time No Known Allergies Allergy Verified 10/03/22 09:44 [No Known Allergies*] Review of Systems Review of Systems: Constitutional : No Weight loss, No Fever, No Chills, No Night Sweats, No Fatigue, No Malaise ENT/Mouth : No Hearing loss, No Ear Pain, No Nasal Congestion, No Sinus Pain, No Hoarseness, no sore throat but has foreign body sensation, No Rhinorrhea, No Swallowing Difficulty Eyes: No Eye Pain, No Swelling, No Redness, No Foreign Body, No Discharge, No Vision Changes Cardiovascular : No Chest Pain, No SOB, No Dyspnea on Exertion, No Orthopnea, No Edema, No Palpitations Respiratory : No Cough, No Sputum, No Wheezing, No Smoke Exposure, No Dyspnea Gastrointestinal : No Nausea, No Vomiting, No Diarrhea, No Constipation, No abdominal Pain, No Hematochezia, No Melena Genitourinary : no irregular bleeding, No Dysuria, No Urinary Frequency, No Hematuria, No Urinary Incontinence, No Urgency, No Flank Pain, No Urinary Flow Changes, No Hesitancy Musculoskeletal : No joint pain, No Myalgias, No Joint Swelling Skin : Rash and thighs Neuro : No Weakness, No Numbness, No Paresthesias, No Loss of Consciousness, No Dizziness, No Headache Psych : No Anxiety/Panic, No Depression, No SI/HI/AH/VH, No Social Issues, Heme/Lymph: No Bruising, No Bleeding,No Lymphadenopathy Endocrine : No Polyuria, No Polydipsia, No Temperature Intolerance [facility] Past Medical History Medical History Constipation Ovarian cyst Tension type headache Family History Family History Father Diabetes Mother Hypertension Other Substance abuse Social History Social History Housing: Apartment Alcohol intake: never Patient Tobacco Use Status: Never used Tobacco e-Cigarette/Vaping Use: Never Used Second Hand Smoke Exposure: No Advance Directives: No Advance Directives Information Provided: No service: No Current occupational status: employed Current occupation: [employer] Gender identity: Female Cognitive needs: No Hearing needs: No Vision needs: No Physical Exam ED Vital Signs: Vital Signs - 24 hr 03/08/23 17:52 03/08/23 19:23 03/08/23 21:14 Temperature 98.0 F 98.2 F Pulse Rate 125 H 126 H 88 Respiratory Rate 18 16 Blood Pressure 149/83 H 131/74 124/70 Pulse Oximetry 97 100 Oxygen Delivery Method Room Air Room Air 03/08/23 21:17 03/08/23 21:18 03/08/23 23:36 Temperature 98.5 F Pulse Rate 91 92 95 Respiratory Rate 13 Blood Pressure 123/70 115/69 125/78 Pulse Oximetry 98 Oxygen Delivery Method Room Air BMI result Body Mass Index 29.7 Const Other: Appearance: Alert. Oriented X3. No acute distress. Eyes: Pupils equal, round and reactive to light. ENT: Pharynx normal. Normal oropharynx, no injury edema Neck: Normal inspection. Neck supple. No lymph nodes noted. No crepitus CVS: Normal heart rate and rhythm. Pulses normal. Normal S1 and S2 Respiratory: No respiratory distress. Breath sounds normal. No Wheezing. No rales Abdomen: Soft and nontender. No rigidity. No distention. Skin: Skin warm and dry. Normal skin color. Normal skin turgor. Very mild dermatitis like rash in middle thighs, nearly resolved Extremities: No lower extremity edema. No Lacerations. No Rash Neuro: Oriented X 3. No motor deficit. No sensory deficit. Moving all extremities. No slurred speech. CN 2 through 12 grossly intact Psych: calm, cooperative, anxious Course Course Course Narrative: -patient getting IV fluids, heart rate was initially 125 after she received Benadryl from EMS. -labs pending Medications Administered Discontinued Medications Generic Name Dose Route Start Last Admin Trade Name Mony PRN Reason Stop Dose Admin Famotidine 20 mg 03/08/23 18:04 03/08/23 18:20 Famotidine/Pf 20 Mg/2 Ml Vial IVPUSH 03/08/23 18:05 20 mg ONCE ONE Administration Sodium Chloride 1,000 mls @ 999 mls/hr 03/08/23 18:04 03/08/23 21:13 Ns IVCONT 03/08/23 19:04 Infused .Q1H1M ONE Infusion Sodium Chloride 1,000 mls @ 999 mls/hr 03/08/23 20:14 03/08/23 21:38 Ns IVCONT 03/08/23 21:14 Infused .Q1H1M ONE Infusion Methylprednisolone Sodium Succinate 125 mg 03/08/23 18:04 03/08/23 18:20 Methylprednisolone Sod Succ 125 Mg/2 Ml Vial IVPUSH 03/08/23 18:05 125 mg ONCE ONE Administration Medical Decision Making Medical Decision Making MDM Narrative: -patient no longer has a foreign body sensation in her throat, -heart rate improved to the low 60s after IV fluid, orthostatics are negative -patient instructed to follow-up with her primary care physician -may patient had a possible mild allergic reaction versus dermatitis Lab Data 03/08/23 18:16 03/08/23 18:16 Labs: Lab Results 03/08/23 03/08/23 03/08/23 Range/Units 18:16 18:16 19:20 WBC 8.6 (4.8-10.8) X10*3/uL RBC 4.50 (4.20-5.50) X10*6/uL Hgb 13.6 (12.0-16.0) g/dl Hct 38.9 (37.0-47.0) % MCV 86.4 (80.0-98.0) fL MCH 30.2 (27.0-33.0) pg MCHC 35.0 (31.0-35.0) g/dl RDW 11.5 (11.0-16.0) % Plt Count 231 (160-400) X10*3/uL MPV 10.5 (9.4-12.3) fL Immature Gran % (Auto) 0.3 (0.0-0.4) % Neut % (Auto) 61.7 (45-73) % Lymph % (Auto) 27.4 (20-40) % [place] % (Auto) 7.9 (2-11) % Eos % (Auto) 1.9 (0-4) % Baso % (Auto) 0.8 (0-2) % Lymph # (Auto) 2.4 (1.2-4.9) X10*3/uL [place] # (Auto) 0.7 (0.1-1.2) X10*3/uL Eos # (Auto) 0.2 (0.0-0.4) X10*3/uL Baso # (Auto) 0.1 (0.0-0.2) X10*3/uL Abs Immat Gran (auto) 0.03 (0.00-0.03) X10*3/uL Absolute Neuts (auto) 5.3 (2.0-8.3) x10*3/uL Absolute Nucleated RBC 0.000 (0.0-0.012) X10*3/uL Nucleated RBC % (auto) 0.0 (0.0-0.2) /100WBC Sodium 139 (135-145) mmol/L Potassium 3.3 D (3.3-5.1) mmol/L Chloride 106 (96-108) mmol/L Carbon Dioxide 20 L (22-29) mmol/L Anion Gap 16 (12-20) BUN 11 (9-16) mg/dL Creatinine 0.83 (0.5-1.4) mg/dL Estim Creat Clear Calc 89.8 Estimated GFR > 60 Random Glucose 103 (60-115) mg/dL Calcium 9.0 (8.4-10.2) mg/dL Total Bilirubin 0.4 (0.0-1.0) mg/dL Direct Bilirubin 0.1 (0.0-0.5) mg/dL AST 20 (5-31) U/L ALT 13 (0-31) U/L Alkaline Phosphatase 57 (39-117) U/L Total Protein 7.2 (6.5-8.0) g/dL Albumin 4.5 (3.5-5.0) g/dL Urine Color Yellow Urine Appearance Cloudy Urine pH 6.5 (5.0-9.0) Ur Specific [place] <= 1.005 (1.005-1.025) Urine Protein Negative (Neg-Trace) mg/dL Urine Glucose (UA) Negative (Negative) mg/dL Urine Ketones Negative (Negative) mg/dL Urine Blood Negative (Negative) Urine Nitrite Negative (Negative) Ur Leukocyte Esterase Moderate (2+) H (Negative) Urine RBC 3-5 H (0-2) /HPF Urine WBC 11-20 H (0-5) /HPF Ur Squamous Epith Cells 6-10 (0-2) /HPF Urine Bacteria 2+ (None Seen) Hyaline Casts 0-2 (0-2) /LPF Urine Opiates Screen (Not Detect) Urine Fentanyl Screen (Not Detect) Ur Barbiturates Screen (Not Detect) Ur Phencyclidine Scrn (Not Detect) Ur Amphetamines Screen (Not Detect) U Benzodiazepines Scrn (Not Detect) Urine Cocaine Screen (Not Detect) U Marijuana (THC) Screen (Not Detect) 03/08/23 Range/Units 19:20 WBC (4.8-10.8) X10*3/uL RBC (4.20-5.50) X10*6/uL Hgb (12.0-16.0) g/dl Hct (37.0-47.0) % MCV (80.0-98.0) fL MCH (27.0-33.0) pg MCHC (31.0-35.0) g/dl RDW (11.0-16.0) % Plt Count (160-400) X10*3/uL MPV (9.4-12.3) fL Immature Gran % (Auto) (0.0-0.4) % Neut % (Auto) (45-73) % Lymph % (Auto) (20-40) % [place] % (Auto) (2-11) % Eos % (Auto) (0-4) % Baso % (Auto) (0-2) % Lymph # (Auto) (1.2-4.9) X10*3/uL [place] # (Auto) (0.1-1.2) X10*3/uL Eos # (Auto) (0.0-0.4) X10*3/uL Baso # (Auto) (0.0-0.2) X10*3/uL Abs Immat Gran (auto) (0.00-0.03) X10*3/uL Absolute Neuts (auto) (2.0-8.3) x10*3/uL Absolute Nucleated RBC (0.0-0.012) X10*3/uL Nucleated RBC % (auto) (0.0-0.2) /100WBC Sodium (135-145) mmol/L Potassium (3.3-5.1) mmol/L Chloride (96-108) mmol/L Carbon Dioxide (22-29) mmol/L Anion Gap (12-20) BUN (9-16) mg/dL Creatinine (0.5-1.4) mg/dL Estim Creat Clear Calc Estimated GFR Random Glucose (60-115) mg/dL Calcium (8.4-10.2) mg/dL Total Bilirubin (0.0-1.0) mg/dL Direct Bilirubin (0.0-0.5) mg/dL AST (5-31) U/L ALT (0-31) U/L Alkaline Phosphatase (39-117) U/L Total Protein (6.5-8.0) g/dL Albumin (3.5-5.0) g/dL Urine Color Urine Appearance Urine pH (5.0-9.0) Ur Specific [place] (1.005-1.025) Urine Protein (Neg-Trace) mg/dL Urine Glucose (UA) (Negative) mg/dL Urine Ketones (Negative) mg/dL Urine Blood (Negative) Urine Nitrite (Negative) Ur Leukocyte Esterase (Negative) Urine RBC (0-2) /HPF Urine WBC (0-5) /HPF Ur Squamous Epith Cells (0-2) /HPF Urine Bacteria (None Seen) Hyaline Casts (0-2) /LPF Urine Opiates Screen Not Detected (Not Detect) Urine Fentanyl Screen Not Detected (Not Detect) Ur Barbiturates Screen Not Detected (Not Detect) Ur Phencyclidine Scrn Not Detected (Not Detect) Ur Amphetamines Screen Not Detected (Not Detect) U Benzodiazepines Scrn Not Detected (Not Detect) Urine Cocaine Screen Not Detected (Not Detect) U Marijuana (THC) Screen Not Detected (Not Detect) Discharge Plan Discharge Clinical Impression: Dermatitis, Foreign body sensation in throat, Palpitations Patient Disposition: Home, Self-Care Instructions: Dermatitis (ED) Additional Instructions: If you continue experiencing palpitations, please follow-up with her primary care physician, you may need a Holter monitor. Please follow-up with your primary care physician tomorrow. If you have any worsening or new symptoms, please return to the emergency room or call 911 Prescriptions: No Action omeprazole 20 mg capsule,delayed release(DR/EC) 20 mg PO DAILY PRN (Reason: acid reflux) Qty: 90 0RF
[2023-03-08] MEDS: methylPREDNISolone Sod Succ 125 MG/2 ML VIAL IVPUSH (18:20)
[2023-03-08] MEDS: Famotidine/PF 20 MG/2 ML VIAL IVPUSH (18:20)
--- NOTE | 2023-03-08 18:20 | ECG_ITS ---
Test Reason : TACHYCARDIA Blood Pressure : / mmHG Vent. Rate : 090 BPM Atrial Rate : 090 BPM P-R Int : 140 ms QRS Dur : 082 ms QT Int : 364 ms P-R-T Axes : 066 069 047 degrees QTc Int : 445 ms Sinus rhythm with marked sinus arrhythmia Otherwise normal ECG When compared to the previous EKG of No significant changes seen Referred By: Mitzy Mims Electronically Signed By:Timbo Griffin
[2023-03-08] MEDS: 0.9 % Sodium Chloride 1,000 ML 999 ML IVCONT ×2 (18:21→20:24)
[2023-03-08 18:23] LABS: MANUAL DIFF FLAG NO
[2023-03-08 18:26] LABS: Basophils Absolute Auto 0.1 X10*3/uL (0.0-0.2); Basophils Percent Auto 0.8 % (0-2); Eosinophils Absolute Auto 0.2 X10*3/uL (0.0-0.4); Eosinophils Percent Auto 1.9 % (0-4); Hematocrit 38.9 % (37.0-47.0); Hemoglobin 13.6 g/dl (12.0-16.0); Imm Gran Abs Auto 0.03 X10*3/uL (0.00-0.03); Imm Gran Pct Auto 0.3 % (0.0-0.4); Lymphocytes Absolute Auto 2.4 X10*3/uL (1.2-4.9); Lymphocytes Percent Auto 27.4 % (20-40); Mean Corpuscular Hemoglobin 30.2 pg (27.0-33.0); Mean Corpuscular Volume 86.4 fL (80.0-98.0); Mean Platelet Volume 10.5 fL (9.4-12.3); Monocytes Absolute Auto 0.7 X10*3/uL (0.1-1.2); Monocytes Percent Auto 7.9 % (2-11); Neutrophils Absolute Auto 5.3 x10*3/uL (2.0-8.3); Neutrophils Percent Auto 61.7 % (45-73); Platelet Count 231 X10*3/uL (160-400); Red Cell Distribution Width 11.5 % (11.0-16.0); White Blood Count 8.6 X10*3/uL (4.8-10.8)
[2023-03-08 18:41] LABS: Alanine Aminotransferase 13 U/L (0-31); Albumin Level 4.5 g/dL (3.5-5.0); Alkaline Phosphatase 57 U/L (39-117); Anion Gap 16 (12-20); Aspartate Amino Transferase 20 U/L (5-31); Bilirubin Direct 0.1 mg/dL (0.0-0.5); Bilirubin Total 0.4 mg/dL (0.0-1.0); Blood Urea Nitrogen 11 mg/dL (9-16); Carbon Dioxide 20 mmol/L (22-29); Chloride 106 mmol/L (96-108); Creatinine Clr Calc Pharmacy 89.8; Estimated Glomerular Filt Rate > 60; Glucose Random 103 mg/dL (60-115); Potassium 3.3 mmol/L (3.3-5.1); Sodium 139 mmol/L (135-145); Total Protein 7.2 g/dL (6.5-8.0)
[2023-03-08 19:23] VITALS: BP 131/74; PULSE 126; RESP 16; TEMP 36.8; O2SAT 100
[2023-03-08 19:36] LABS: Appearance Urine Cloudy; Color Urine Yellow; Glucose Urine UA Negative (Negative); Leukocyte Esterase Urine Moderate (2+) (Negative); Nitrite Urine Negative (Negative); PH 6.5 (5.0-9.0); Specific Gravity - Urine <= 1.005 (1.005-1.025); UMIC TRIGGER UACC YES; Urine Blood Negative (Negative); Urine Ketones Negative (Negative); Urine Protein Negative (Neg-Trace)
[2023-03-08 19:38] LABS: Bacteria Urine 2+ (None Seen); Hyaline Casts Urine 0-2 /LPF (0-2); UACC Culture Trigger YES
[2023-03-08 19:44] LABS: Amphetamine Screen Urine Not Detected (Not Detect); Barbiturates, Urine Not Detected (Not Detect); Benzodiazepines Screen Urine Not Detected (Not Detect); Cannabinoid Screen Urine Not Detected (Not Detect); Cocaine Screen Urine Not Detected (Not Detect); Fentanyl, urine Not Detected (Not Detect); Opiate Screen Urine Not Detected (Not Detect); Phencyclidine Screen Urine Not Detected (Not Detect)
[2023-03-08 21:14] VITALS: BP 124/70; PULSE 88
[2023-03-08 21:17] VITALS: BP 123/70; PULSE 91
[2023-03-08 21:18] VITALS: BP 115/69; PULSE 92
--- NOTE | 2023-03-08 21:23 | MHC.EDTECH ---
Patient using the bathroom
[2023-03-08 23:36] VITALS: BP 125/78; PULSE 95; RESP 13; TEMP 36.9; O2SAT 98
== END 2023-03-09 00:01 | disposition home or self-care (01) ==
PROVIDERS: Emergency Provider Emergency Medicine
DX: L50.0 Allergic urticaria (principal); R00.0 Tachycardia, unspecified; R09.89 Other specified symptoms and signs involving the circulatory and respiratory systems; R00.2 Palpitations; Z79.899 Other long term (current) drug therapy
CPT/HCPCS: 36415; 80048; 80076; 80307; 81001; 85025; 87086; 93005; 96361; 96374; 99284; 99285; J2930

== ENCOUNTER 2023-03-12 15:29 | Outpatient (REF) | payer OTHER, SELFPAY ==
[2023-03-12 15:46] LABS: MANUAL DIFF FLAG NO
[2023-03-12 17:03] LABS: Basophils Absolute Auto 0.1 X10*3/uL (0.0-0.2); Basophils Percent Auto 0.8 % (0-2); Eosinophils Absolute Auto 0.3 X10*3/uL (0.0-0.4); Eosinophils Percent Auto 2.9 % (0-4); Hematocrit 43.6 % (37.0-47.0); Hemoglobin 14.7 g/dl (12.0-16.0); Imm Gran Abs Auto 0.03 X10*3/uL (0.00-0.03); Imm Gran Pct Auto 0.3 % (0.0-0.4); Lymphocytes Absolute Auto 2.5 X10*3/uL (1.2-4.9); Lymphocytes Percent Auto 27.9 % (20-40); Mean Corpuscular HGB Conc 33.7 g/dl (31.0-35.0); Mean Corpuscular Hemoglobin 29.9 pg (27.0-33.0); Mean Corpuscular Volume 88.8 fL (80.0-98.0); Mean Platelet Volume 11.3 fL (9.4-12.3); Monocytes Absolute Auto 0.7 X10*3/uL (0.1-1.2); Monocytes Percent Auto 7.6 % (2-11); Neutrophils Absolute Auto 5.4 x10*3/uL (2.0-8.3); Neutrophils Percent Auto 60.5 % (45-73); Platelet Count 264 X10*3/uL (160-400); Red Blood Count 4.91 X10*6/uL (4.20-5.50); Red Cell Distribution Width 11.7 % (11.0-16.0); White Blood Count 8.9 X10*3/uL (4.8-10.8)
[2023-03-12 17:04] LABS: INTERNATIONAL NORM RATIO 0.9 (0.9-1.1); Prothrombin Time 10.3 SEC (10.0-13.1)
[2023-03-12 17:45] LABS: TSH reflex Free T4 1.47 uIU/mL (0.32-4.0)
[2023-03-16 09:18] LABS: Anti DNA DS Antibody 5 IU/mL
[2023-03-20 15:32] LABS: Anti Nuclear Antibody Screen POSITIVE (NEGATIVE); Anti Nuclear Antibody Titer 1:40 titer
== END 2023-03-12 15:30 | disposition home or self-care (01) ==
LOC: HO.LAB 15:29
PROVIDERS: Nurse Practitioner; PCP Physician Assistant; Visit Provider Physician Assistant
DX: Z13.9 Encounter for screening, unspecified (principal); R00.2 Palpitations; R79.89 Other specified abnormal findings of blood chemistry; R76.8 Other specified abnormal immunological findings in serum
CPT/HCPCS: 36415; 84443; 85025; 85610; 86038; 86039; 86225

== ENCOUNTER → 2023-04-11 07:00 | Outpatient (REF) | payer OTHER, SELFPAY ==
--- NOTE | 2023-04-11 07:03 | HM_ITS ---
Conclusion: 1. Patient was monitored for total period of 7 days and 20 hours 2. Baseline was normal sinus rhythm with average heart of 69 beats per minute 3. No significant pauses noted 4. Very rare ectopy noted 5. No patient reported events MTDD
== END ==
LOC: HO.CARD 07:00
PROVIDERS: PCP Physician Assistant; Visit Provider Physician Assistant
DX: R00.2 Palpitations (principal)
CPT/HCPCS: 93242

== ENCOUNTER → 2023-04-11 07:03 | Outpatient (BNV) | payer OTHER, SELFPAY | PROVIDERS: PCP Physician Assistant; Visit Provider Internal Medicine Cardiovascular Disease | DX: R00.2 Palpitations (principal) | CPT/HCPCS: 93244 ==

== ENCOUNTER 2023-07-01 13:26 | Outpatient (REF) | payer OTHER, SELFPAY ==
[2023-07-01 14:54] LABS: MANUAL DIFF FLAG NO
[2023-07-01 15:42] LABS: Basophils Percent Auto 0.5 % (0-2); Eosinophils Absolute Auto 0.2 X10*3/uL (0.0-0.4); Eosinophils Percent Auto 2.4 % (0-4); Hematocrit 42.1 % (37.0-47.0); Hemoglobin 13.9 g/dl (12.0-16.0); Imm Gran Abs Auto 0.01 X10*3/uL (0.00-0.03); Imm Gran Pct Auto 0.2 % (0.0-0.4); Lymphocytes Absolute Auto 2.6 X10*3/uL (1.2-4.9); Lymphocytes Percent Auto 39.3 % (20-40); Mean Corpuscular Hemoglobin 29.4 pg (27.0-33.0); Mean Corpuscular Volume 89.2 fL (80.0-98.0); Mean Platelet Volume 11.4 fL (9.4-12.3); Monocytes Absolute Auto 0.4 X10*3/uL (0.1-1.2); Monocytes Percent Auto 6.3 % (2-11); Neutrophils Absolute Auto 3.4 x10*3/uL (2.0-8.3); Neutrophils Percent Auto 51.3 % (45-73); Platelet Count 268 X10*3/uL (160-400); Red Blood Count 4.72 X10*6/uL (4.20-5.50); Red Cell Distribution Width 11.8 % (11.0-16.0); White Blood Count 6.7 X10*3/uL (4.8-10.8)
[2023-07-01 16:27] LABS: Alanine Aminotransferase 14 U/L (0-31); Albumin Level 4.7 g/dL (3.5-5.0); Alkaline Phosphatase 46 U/L (39-117); Anion Gap 12 (12-20); Aspartate Amino Transferase 20 U/L (5-31); Bilirubin Total 0.6 mg/dL (0.0-1.0); Blood Urea Nitrogen 11 mg/dL (9-16); Calcium 10.1 mg/dL (8.4-10.2); Carbon Dioxide 26 mmol/L (22-29); Chloride 108 mmol/L (96-108); Estimated Glomerular Filt Rate > 60; Glucose Random 85 mg/dL (60-115); Potassium 4.2 mmol/L (3.3-5.1); Sodium 142 mmol/L (135-145); Total Protein 7.9 g/dL (6.5-8.0)
[2023-07-01 16:34] LABS: Erythrocyte Sedimentation Rate 13 MM/HR (0-20)
[2023-07-01 16:55] LABS: Creatinine Urine 158.08 mg/dL; Protein/Creatinine Ratio, Ur 0.11 (<0.2); Total Protein Urine Random 17 mg/dL (<12)
[2023-07-02 13:38] LABS: Complement C3 122 mg/dL (83-193)
[2023-07-03 14:42] LABS: Anti DNA DS Antibody 3 IU/mL; SM/Ribonucleoprotein Ab <1.0 NEG AI (<1.0 NEG); Smith Protein <1.0 NEG AI (<1.0 NEG)
== END 2023-07-01 13:27 | disposition home or self-care (01) ==
LOC: HO.LAB 13:26
PROVIDERS: PCP Physician Assistant; Referring Provider Physician Assistant; Visit Provider Internal Medicine Rheumatology
DX: R76.8 Other specified abnormal immunological findings in serum (principal); F41.9 Anxiety disorder, unspecified; Z79.899 Other long term (current) drug therapy
CPT/HCPCS: 36415; 80053; 82570; 84156; 85025; 85652; 86140; 86160; 86225; 86235; 99202

== ENCOUNTER 2023-07-01 13:26 | Outpatient (AMB) | payer OTHER, SELFPAY ==
--- NOTE | 2023-07-01 13:31 | MHC.OFFVIS ---
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 The CHEYANNE had been noticed at a workup for elevated transaminases in February of 2022. The transaminases have subsequently improved. Recently, this February, she was in the ER with lightheadedness, chills, palpitation and weakness. Workup did not reveal significant pathology. There was suspicion that this was due to anxiety. She gets occasional arthralgias in the fingers, knees and the feet. No joint swelling is noted. 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 She brings in a note requesting a special allowance for tardyness and absence due to her medical issues. She has been trying to lose weight this year. This is through exercising and dieting. [facility] Medical History (Updated 03/21/23 @ 12:42 by Rico Eugene PA-C) Ovarian cyst Tension type headache Constipation Surgical History (Updated 07/01/23 @ 13:36 by SINDI Merida) History of surgical removal of ganglion cyst Family History (Updated 07/01/23 @ 13:35 by SINDI Merida) Father Diabetes Mother Hypertension Other Substance abuse Social History (Updated 07/01/23 @ 13:37 by SINDI Merida) Household Members: None Housing: Apartment Alcohol intake: never Patient Tobacco Use Status: Never used Tobacco e-Cigarette/Vaping Use: Never Used Second Hand Smoke Exposure: No service: No Current occupational status: employed Current occupation: social work Gender identity: Female Cognitive needs: No Hearing needs: No Vision needs: No Female Reproductive History Menstrual Age of Menarche: 10 Total pregnancies: 0 Review of Systems Const Details: Some intentional weight loss. Feels like she needs more energy. Negative for appetite change, fever, chills, malaise Eyes Details: Itchy eyes at times. Negative for vision change, dry eyes,headaches and dizziness ENT Details: Occasional tinnitus. Negative for hearing change, oral ulcer, nose bleeds and oral dryness. Card Details: Negative chest pain, edema and syncope Resp Details: Negative for SOB, cough and wheezing GI Details: Occasional nausea and heartburn after eating. Improved with omeprazole. Negative abdominal pain, bowel changes, diarrhea, constipation and bloody stool. Details: Negative for dysuria, hematuria, nocturia, decreased force/flow and genital discharge Skin/Breast Details: She had a rash on her inner thighs when she presented to the ER in February. This resolved within a day. Presently negative for itching, rash, hives, Raynaud's symptoms, sun sensitivity, and skin cancer Neuro Details: Negative for epilepsy, palsy, stroke, changes in speech, tingling and weakness Psych Details: Negative for anxiety, depression and stress Endo Details: Negative for polyuria and polydypsia [place]/Lymph Details: Negative for excessive bruising or bleeding. Physical Exam Vital Signs: Last Vital Signs Temp 97.7 F 07/01/23 13:32 Pulse 70 07/01/23 13:32 BP 106/70 07/01/23 13:32 Pulse Ox 96 07/01/23 13:32 Oxygen Delivery Method Room Air 07/01/23 13:32 BMI result Body Mass Index 25.2 APPEARANCE: Patient in no acute distress EYES no redness, pupils equal and reactive to light, eyelids normal EARS: External ear normal, canal clear and tympanic membrane normal. NOSE/SINUS: Airflow through both nares, no nasal discharge, no bleeding THROAT: Oral mucosa moist, no ulcerations NECK: No thyromegaly or masses, no adenopathy, trachea midline. HEART: Regulrar rhythm, S1-S2 heard, no murmurs, rubs or gallops. LUNG: Clear to percussion and auscultation ABD: Normal bowel sounds, no organomegaly, masses or tenderness. EXTREMITIES: No edema, no calf tenderness, normal peripheral pulses. NEURO: Oriented and alert x3. No focal weakness. Reflexes symmetric. Gait normal. SKIN: No inflammatory or neoplastic lesions. Normal color and turgor. Appears to be some dandruff no obvious skin lesions. JOINT EXAM:.?? Cervical Spine:.? Full range of motion without pain; no tenderness. Thoracic Spine:.? No scoliosis.? No tenderness on palpation. Lumbar Spine:.? Alignment normal.? Full range of motion without pain, no tenderness. Chest Wall:.? No tenderness, swelling, increased warmth or erythema. Hands:.? Normal pain-free range of motion. There is some slight tenderness in the 2nd through 4th PIP is bilaterally. These are not swollen however. There is no triggering, soft tissue swelling, increased warmth or erythema in other joints. There is no thenar atrophy or sensory loss. Wrists:.? Normal pain-free range of motion with slight dorsal tenderness but no swelling, increased warmth or erythema. Elbows:. Normal pain-free range of motion without tenderness, swelling, increased warmth or erythema. Shoulders:.?? Full range of motion without pain. No tenderness, weakness, swelling, increased warmth or erythema. Hips:.? Full range of motion without pain. Hip bursa:.? No tenderness. Knees:.?? Normal pain-free range of motion without tenderness, swelling, increased warmth or erythema.? There is no effusion or crepitation Ankles:.? Normal pain-free range of motion without tenderness, swelling, increased warmth or erythema. Feet:.? Normal pain-free range of motion without tenderness, swelling, increased warmth or erythema. Tender points: Slight tenderness to digital palpation at the or knees, greater trochanter area bilaterally. ? Results Reviewed Results Reviewed: February 2022 and 2022: CHEYANNE positive at 1: February: White count 8900, hemoglobin 14.7, TSH normal, anti DNA antibody 5 Assessment & Plan Assessment & Plan (1) Positive double stranded DNA antibody test: Code(s): R76.8 - Other specified abnormal immunological findings in serum (2) Anxiety: Code(s): F41.9 - Anxiety disorder, unspecified (3) CHEYANNE positive: Code(s): R76.8 - Other specified abnormal immunological findings in serum Plan She has a few arthralgias but more symptoms to suggest she had a panic attack back in February. There is mild elevation of the CHEYANNE and borderline elevation of anti double-stranded DNA in the past. These abnormalities raise the question of rheumatic disease but with the relatively minimal symptoms review and the slightly tender but not swollen scattered jointsl, I think most likely she just has a panic disorder. She tends to agree that she has had anxiety problems before. She does not want to go on any medications or see any therapist for anxiety presently. Things could evolve in the future to a more recognizable rheumatic syndrome. We will repeat some of her lab work and add some more definitive serologies. We will get back to her with the results of those studies. As far as her form that she wanted filled out for school I told her I would wait for the lab work before putting down a tentative diagnosis. We will arrange follow-up if needed when the lab work comes back. Orders: Orders Complement C4 Today R76.8 - Other specified abnormal immunological findings in serum Protein Creatinine Ratio, Ur Today R76.8 - Other specified abnormal immunological findings in serum Anti DNA DS Antibody Today R76.8 - Other specified abnormal immunological findings in serum Anti Extractable Nuclear Ag Today R76.8 - Other specified abnormal immunological findings in serum Complement C3 Today R76.8 - Other specified abnormal immunological findings in serum Complete Blood Count Auto Diff Today R76.8 - Other specified abnormal immunological findings in serum Erythrocyte Sedimentation Rate Today R76.8 - Other specified abnormal immunological findings in serum Comprehensive Met. Panel Today R76.8 - Other specified abnormal immunological findings in serum C Reactive Protein Today R76.8 - Other specified abnormal immunological findings in serum Coding Level of Care Code New Pt Level 3 (25602) Diagnoses Positive double stranded DNA antibody test R76.8 Anxiety F41.9 CHEYANNE positive R76.8
[2023-07-01 13:32] VITALS: BP 106/70; PULSE 70; TEMP 36.5; O2SAT 96; BMI 25.2
== END 2023-07-01 14:22 | disposition home or self-care (01) ==
PROVIDERS: PCP Physician Assistant; Referring Provider Physician Assistant; Visit Provider Internal Medicine Rheumatology
DX: R76.8 Other specified abnormal immunological findings in serum (principal); F41.9 Anxiety disorder, unspecified
CPT/HCPCS: 99203

== ENCOUNTER 2023-09-06 20:53 | Emergency (ER) | payer OTHER, SELFPAY ==
[2023-09-06 20:54] VITALS: BP 129/77; PULSE 101; RESP 17; TEMP 36.6; O2SAT 100; BMI 26.0
--- NOTE | 2023-09-06 20:55 | ED_ITS ---
HPI - General Adult General Chief complaint: Upper Respiratory Symptoms Stated complaint: throat infection, headache, earache Time Seen by Provider: 09/06/23 21:04 Source: patient Mode of arrival: ambulatory Limitations: no limitations History of Present Illness HPI narrative: Patient comes to the emergency room complaining of 2 days of sore throat. Patient denies fever chills. Patient complaining of headache, no neck pain or stiffness Related Data Home Medications Medication Instructions Recorded Confirmed etonogestrel 68 mg subdermal subdermal 06/28/23 07/01/23 implant (Nexplanon) Previous Rx's Medication Instructions Recorded omeprazole 20 mg capsule,delayed 20 mg PO DAILY PRN acid reflux #90 10/30/22 release caps amoxicillin 500 mg-potassium 1 tab PO BID #20 tabs 09/06/23 clavulanate 125 mg tablet (Augmentin) ibuprofen 600 mg tablet 600 mg PO TID PRN fever or pain 09/06/23 #14 tabs Allergies Allergy/AdvReac Type Severity Reaction Status Date / Time No Known Allergies Allergy Verified 07/01/23 13:31 [No Known Allergies*] Review of Systems Review of Systems: Constitutional : No Weight loss, No Fever, No Chills, No Night Sweats, No Fatigue, No Malaise ENT/Mouth : No Hearing loss, No Ear Pain, No Nasal Congestion, No Sinus Pain, No Hoarseness, complaining of sore throat, No Rhinorrhea, No Swallowing Difficulty Eyes: No Eye Pain, No Swelling, No Redness, No Foreign Body, No Discharge, No Vision Changes Cardiovascular : No Chest Pain, No SOB, No Dyspnea on Exertion, No Orthopnea, No Edema, No Palpitations Respiratory : No Cough, No Sputum, No Wheezing, No Smoke Exposure, No Dyspnea Gastrointestinal : No Nausea, No Vomiting, No Diarrhea, No Constipation, No abdominal Pain, No Hematochezia, No Melena Genitourinary : no irregular bleeding, No Dysuria, No Urinary Frequency, No Hematuria, No Urinary Incontinence, No Urgency, No Flank Pain, No Urinary Flow Changes, No Hesitancy Musculoskeletal : No joint pain, No Myalgias, No Joint Swelling Skin : No Skin Lesions, No rash Neuro : No Weakness, No Numbness, No Paresthesias, No Loss of Consciousness, No Dizziness, complaining of mild Headache Psych : No Anxiety/Panic, No Depression, No SI/HI/AH/VH, No Social Issues, Heme/Lymph: No Bruising, No Bleeding,No Lymphadenopathy Endocrine : No Polyuria, No Polydipsia, No Temperature Intolerance [facility] Past Medical History Medical History Ovarian cyst Tension type headache Constipation Surgical History (Updated 07/01/23 @ 13:36 by SINDI Merida) History of surgical removal of ganglion cyst Family History Family History (Updated 07/01/23 @ 13:35 by SINDI Merida) Father Diabetes Mother Hypertension Other Substance abuse Social History Social History (Updated 07/01/23 @ 13:37 by SINDI Merida) Household Members: None Housing: Apartment Alcohol intake: never Patient Tobacco Use Status: Never used Tobacco e-Cigarette/Vaping Use: Never Used Second Hand Smoke Exposure: No Advance Directives: No Advance Directives Information Provided: No service: No Current occupational status: employed Current occupation: social work Gender identity: Female Cognitive needs: No Hearing needs: No Vision needs: No Physical Exam ED Vital Signs: Vital Signs - 24 hr 09/06/23 20:54 09/06/23 22:00 Temperature 97.9 F Pulse Rate 101 H 100 Respiratory Rate 17 16 Blood Pressure 129/77 125/70 Pulse Oximetry 100 100 Oxygen Delivery Method Room Air Room Air BMI result Body Mass Index 26.0 Const Other: Appearance: Alert. Oriented X3. No acute distress. Eyes: Pupils equal, round and reactive to light. ENT: No abscess is visualized, however, patient has bilateral exudates Neck: Normal inspection. Neck supple. No lymph nodes noted. No crepitus CVS: Normal heart rate and rhythm. Pulses normal. Normal S1 and S2 Respiratory: No respiratory distress. Breath sounds normal. No Wheezing. No rales Abdomen: Soft and nontender. No rigidity. No distention. Skin: Skin warm and dry. Normal skin color. Normal skin turgor. Extremities: No lower extremity edema. No Lacerations. No Rash Neuro: Oriented X 3. No motor deficit. No sensory deficit. Moving all extremities. No slurred speech. CN 2 through 12 grossly intact Psych: calm, cooperative, normal affect Course Course Course Narrative: This is an RME: Additional HPI, ROS, PE not included below will be deferred to primary provider. This is a 22-mhdi-tir-female presenting to the Er with complaints of sore throat and headache x 2 days. Tonsils are erythematous and exudative. VSS. Plan: Strep swab ordered Medical Decision Making Medical Decision Making [facility] Narrative: -my interpretation of labs: Patient tested negative for strep. However, given the patient's physical exam, I will go ahead and start her on antibiotics. -patient was given a dose of Augmentin in the ED, ibuprofen and viscous lidocaine for symptomatic relief Differential Diagnosis Differential Diagnoses: The differential diagnosis associated with the presentation includes (Strep pharyngitis, viral pharyngitis, mononucleosis) Lab Data [facility] Lab Attestation statement: I reviewed the patient's lab results. Labs: Lab Results 09/06/23 Range/Units 21:02 S. pyogenes GrpA DAKSHA Negative (Negative) Discharge Plan Discharge Clinical Impression: Pharyngitis Patient Disposition: Home, Self-Care Instructions: Strep Throat (ED) Additional Instructions: Please follow-up with your primary care physician tomorrow. If you have any worsening or new symptoms, please return to the emergency room or call 911 Prescriptions: New amoxicillin-pot clavulanate [Augmentin] 500-125 mg tablet 1 tab PO BID Qty: 20 0RF ibuprofen 600 mg tablet 600 mg PO TID PRN (Reason: fever or pain) Qty: 14 0RF No Action omeprazole 20 mg capsule,delayed release(DR/EC) 20 mg PO DAILY PRN (Reason: acid reflux) Qty: 90 0RF Nexplanon 68 mg implant subdermal Stand Alone Forms: Work/School Release
[2023-09-06 21:16] LABS: IDNOW Serial# 6674DD1D; Strep A Nucleic Acid Negative (Negative)
[2023-09-06 22:00] VITALS: BP 125/70; PULSE 100; RESP 16; O2SAT 100
[2023-09-06] MEDS: Lidocaine HCl Viscous 2 % 15 ML SOLUTION MUCOUS MEM (22:48)
[2023-09-06] MEDS: Amoxicillin/Potassium Clav 875 MG TABLET PO (22:48)
[2023-09-06] MEDS: Ibuprofen 600 MG TABLET PO (22:48)
== END 2023-09-06 23:01 | disposition home or self-care (01) ==
PROVIDERS: Physician Assistant Medical; Emergency Provider Emergency Medicine; PCP Physician Assistant
DX: J02.9 Acute pharyngitis, unspecified (principal); R51.9 Headache, unspecified; H92.03 Otalgia, bilateral; Z79.899 Other long term (current) drug therapy
CPT/HCPCS: 87651; 99283

== ENCOUNTER 2023-12-11 10:00 | Outpatient (AMB) | payer OTHER, SELFPAY ==
[2023-12-11 10:26] VITALS: BP 112/68; PULSE 95; TEMP 36.5; O2SAT 98; BMI 27.1
--- NOTE | 2023-12-11 10:26 | MHC.OFFWIV ---
Intake Vital Signs 12/11/23 10:26 Height 5 ft 4 in Weight 158 lb BMI 27.1 BP 112/68 Blood Pressure Location Lt brachial Position Sitting Pulse 95 Pulse Source Pulse Oximeter Temp 97.7 F Temp Source Temporal Artery Scan Pulse Oximetry (%) 98 Oxygen Delivery Method Room Air Intake Visit Reasons: EP throat pain head/earache Intake Note: pt is here today for throat pain head and earache started yesterday Patient Tobacco Use Status: Never used Tobacco Allergies No Known Allergies [No Known Allergies*] Allergy (Verified 12/11/23 10:27) Do you need a note to return to daycare/school/sports/work: Yes HPI HPI Comments History of Present Illness Details She presents to office with ST Yesterday onset Pain 07/30 She tried NyQuil and Robitussin without relief No cough + congestion Fever yesterday, none today +headache COVID tests yesterday negative + body aches + tired +bilateral earache PFSH Medical History Ovarian cyst Tension type headache Constipation Surgical History (Updated 07/01/23 @ 13:36 by SINDI Nicholson) History of surgical removal of ganglion cyst Family History (Updated 07/01/23 @ 13:35 by SINDI Nicholson) Father Diabetes Mother Hypertension Other Substance abuse Social History (Updated 07/01/23 @ 13:37 by SINDI Nicholson) Household Members: None Housing: Apartment Alcohol intake: never Patient Tobacco Use Status: Never used Tobacco e-Cigarette/Vaping Use: Never Used Second Hand Smoke Exposure: No service: No Current occupational status: employed Current occupation: social work Gender identity: Female Cognitive needs: No Hearing needs: No Vision needs: No Female Reproductive History Menstrual Age of Menarche: 10 Review of Systems Const Reports chills, Reports fatigue, Reports fever(s) and Reports headache(s) ENT Reports otalgia, Reports headache(s), Reports nasal congestion, Reports sore throat, Denies throat swelling and Denies tongue swelling Card Denies chest pain and Denies dyspnea Resp Denies cough and Denies dyspnea GI Denies abdominal pain Neuro Reports headache(s) Endo Reports fatigue Aller/Immun Denies throat swelling and Denies tongue swelling Physical Exam Vital Signs: Last Vital Signs Temp 97.7 F 12/11/23 10:26 Pulse 95 12/11/23 10:26 BP 112/68 12/11/23 10:26 Pulse Ox 98 12/11/23 10:26 Oxygen Delivery Method Room Air 12/11/23 10:26 BMI result Body Mass Index 27.1 General: Non-toxic, NAD. Speaking full sentences. Skin: Warm dry throughout Eye: EOMI HENT: Airway patent. Uvula midline. + pharyngeal erythema without exudates or edema. No DECORATING CONSULTANT. Bilateral canals clear. TM non-erythematous, non-bulging. No TM perforation or hemotympanum noted. Respiratory: CTA bilaterally. No wheezes, rales or rhonchi Cardiac: RRR. No murmur MSK: Full ROM extremities. Neurology: A/O. No aphasia or facial droop. Gait without abnormality Psych: Good mood and affect Assessment & Plan Assessment & Plan (1) Strep pharyngitis: Code(s): J02.0 - Streptococcal pharyngitis Plan: Patient seen and evaluated. + strep on exam No DECORATING CONSULTANT. No acute distress. Handling secretions well She had infection last month and did not complete antibiotics We discussed penicillin with food x 10 days and NEEDS to finish antibiotics in full ER symptoms discussed Patient gave verbal understanding and had no additional questions or concerns at time of discharge All questions answered Medications: New penicillin V potassium 500 mg PO BID 20 tabs 0RF Coding Level of Care Code Est Pt Level 3 (91381) Diagnoses Strep pharyngitis J02.0
== END 2023-12-11 11:10 | disposition home or self-care (01) ==
PROVIDERS: PCP Physician Assistant; Visit Provider Physician Assistant
DX: J02.0 Streptococcal pharyngitis (principal); J02.9 Acute pharyngitis, unspecified
CPT/HCPCS: 87880; 99213

== ENCOUNTER 2024-01-13 14:46 | Outpatient (AMB) | payer OTHER, SELFPAY ==
[2024-01-13 14:54] VITALS: BP 124/72; PULSE 75; RESP 17; O2SAT 99; BMI 26.8
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
== END 2024-01-13 15:25 | disposition home or self-care (01) ==
PROVIDERS: PCP Physician Assistant; Visit Provider Physician Assistant
DX: M54.50 Low back pain, unspecified (principal); V89.2XXA Person injured in unspecified motor-vehicle accident, traffic, initial encounter; M54.2 Cervicalgia; Z04.3 Encounter for examination and observation following other accident; F41.1 Generalized anxiety disorder
CPT/HCPCS: 99214

== ENCOUNTER 2024-02-06 17:12 | Emergency (ER) | payer OTHER, SELFPAY ==
[2024-02-06 17:51] VITALS: BP 131/96; PULSE 85; RESP 18; TEMP 36.3; O2SAT 97; BMI 26.1
--- NOTE | 2024-02-06 17:53 | ED.GENADULT ---
HPI - General Adult General Chief complaint: General Medical Stated complaint: left hand swollen finger Time Seen by Provider: 02/06/24 18:56 History of Present Illness HPI narrative: The patient is a 24-year-old woman who says that yesterday she was at work when she noticed that there was some redness and swelling and itchiness and burning to her left middle finger. She had no trauma. She took a Benadryl. Today symptoms persisted and a friend suggest that she might have a cellulitis of her finger and she came to the emergency room. She says she does not really have pain in the finger and it is not particularly tender to the touch. She has had some symptoms of a cold recently but otherwise has felt well. No fever. She denies any lesions around her mouth, no vesicles or other lesions. She has had no recent sexual contacts. She denies any bug bites. Related Data Previous Rx's ?Medication ?Instructions ?Recorded cyclobenzaprine 5 mg tablet 5 mg PO BEDTIME 14 days #14 tabs 01/13/24 cephalexin 500 mg capsule 500 mg PO QID 8 days #32 caps 02/06/24 cetirizine 10 mg tablet 10 mg PO DAILY PRN allergy 02/06/24 symptoms #7 tabs Allergies Allergy/AdvReac Type Severity Reaction Status Date / Time No Known Allergies Allergy Verified 02/06/24 17:54 [No Known Allergies*] Review of Systems Review of Systems: Yes all other systems are reviewed and are negative [facility] Past Medical History Medical History Ovarian cyst Tension type headache Constipation Surgical History History of surgical removal of ganglion cyst Family History Family History Father Diabetes Mother Hypertension Other Substance abuse Social History Social History Household Members: None Housing: Apartment Alcohol intake: never Patient Tobacco Use Status: Never used Tobacco e-Cigarette/Vaping Use: Never Used Second Hand Smoke Exposure: No Advance Directives: No Advance Directives Information Provided: No service: No Current occupational status: employed Current occupation: social work Gender identity: Female Cognitive needs: No Hearing needs: No Vision needs: No Physical Exam ED Vital Signs: Vital Signs - 24 hr 02/06/24 17:51 Temperature 97.4 F Pulse Rate 85 Respiratory Rate 18 Blood Pressure 131/96 H Pulse Oximetry 97 Oxygen Delivery Method Room Air BMI result Body Mass Index 26.1 Const Other: The patient is awake, alert, pleasant, cooperative. She looks as though she is an ordinarily healthy 24-year-old not seem in any distress and does not seem toxic in any way. HENMT Other: The face is unremarkable. No facial lesions, no lip lesions, no intraoral lesions Eyes Other: Pupils are round equal, conjunctivae are clear Resp Effort & Inspection: normal respiratory effort Skin Other: There is some mild redness to the left middle finger mostly in the region of the middle phalanx. No vesicles Neuro Other: The patient is awake, alert, nontoxic, grossly neurologically intact. Extrem Other: The patient has some nonspecific swelling and erythema to the left middle finger mostly in the region of the left middle phalanx. She is able to flex the joints of the finger without any difficulty. There is no redness or tenderness in the palm. For the most part the finger does not seem tender at all. She says that when I touch the area of redness that ?it feels like there is fluid in my finger. ? Course Course Course Narrative: This is an RME: Additional HPI, ROS, PE not included below will be deferred to primary provider. 24 yo f presents with left middle finger that is burning, itching since yesterday. Denies trauma. Denies nausea, vomiting, chills. Reports one week of flu symptoms. 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 She was working in her office yesterday when she developed itching and redness and burning to the left middle finger. The symptoms persisted today on a colleague suggested she might have cellulitis and so she came to the hospital. The finger is not really painful. Clinically the finger looks like she has more of an allergic phenomenon than an infectious phenomenon. There are no vesicles. I see nothing that suggests anything like a herpes infection. There is no brandy. She denies any recent sexual contacts. Denies any bug bites. She denies any injury. Clinically her exam seems most consistent with an allergic reaction and so she will be advised to use cetirizine. I provided her with a prescription for cephalexin which she may use if she feels she develops worsening pain or redness but I think this would be very unlikely. She should stay in touch with her regular doctor for additional advice as needed or return to the ER if worse. Lab Data Labs: Lab Results 02/06/24 Range/Units 18:13 Influenza Type A (PCR) NEGATIVE (Negative) Influenza Type B (PCR) NEGATIVE (Negative) RSV RNA Qual (PCR) NEGATIVE (Negative) SARS-CoV-2 RNA (RT-PCR) NEGATIVE (Negative) Discharge Plan Discharge Clinical Impression: Allergic reaction, Localized swelling of finger of left hand Patient Disposition: Home, Self-Care Additional Instructions: I think that you have a localized allergic reaction to your left middle finger. It is not clear to me why you have this localized allergic reaction but perhaps you were bitten by some small insect which has caused this reaction. I think the most reasonable approach to this problem is to use antihistamines for itching think this might also help with burning. You were given a dose of loratadine here which is a nonsedating antihistamine (as opposed to Benadryl which is more sedating). I have sent a prescription to your pharmacy for cetirizine, a nonsedating antihistamine which you may use for itching and burning symptoms. I do not know if this prescription will be covered by your insurance. I have provided you with a paper prescription for an antibiotic, cephalexin, which you may use if you feel your fingers getting more painful or the redness is getting significantly worse. Stay in touch with your regular doctor for additional advice as needed. Return to the emergency room if worse. Prescriptions: New cephalexin 500 mg capsule 500 mg PO QID 8 Days Qty: 32 0RF cetirizine 10 mg tablet 10 mg PO DAILY PRN (Reason: allergy symptoms) Qty: 7 0RF No Action cyclobenzaprine 5 mg tablet 5 mg PO BEDTIME 14 Days Qty: 14 0RF Referrals: Rico Eugene PA-C [Primary Care Provider] - (Left finger swelling and itching) Print Language: Icelandic
[2024-02-06 19:04] LABS: Influenza A PCR NEGATIVE (Negative); Influenza B PCR NEGATIVE (Negative); Resp Syncy Virus RNA Qual PCR NEGATIVE (Negative); SARS COV2 PCR INHOUSE NEGATIVE (Negative)
[2024-02-06] MEDS: Loratadine 10 MG TABLET PO (19:21)
[2024-02-06 19:22] VITALS: BP 122/84; PULSE 77; RESP 17; TEMP 36.8; O2SAT 99
== END 2024-02-06 19:25 | disposition home or self-care (01) ==
PROVIDERS: Physician Assistant; Emergency Provider Emergency Medicine; PCP Physician Assistant
DX: T78.40XA Allergy, unspecified, initial encounter (principal); M79.89 Other specified soft tissue disorders; X58.XXXA Exposure to other specified factors, initial encounter
CPT/HCPCS: 0241U; 99282; 99283

== ENCOUNTER 2024-05-15 09:51 | Outpatient (AMB) | payer OTHER, SELFPAY ==
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
[2024-05-15 10:18] VITALS: BMI 27.8
== END 2024-05-15 10:50 | disposition home or self-care (01) ==
PROVIDERS: PCP Physician Assistant; Visit Provider Physician Assistant
DX: M75.101 Unspecified rotator cuff tear or rupture of right shoulder, not specified as traumatic (principal); M75.102 Unspecified rotator cuff tear or rupture of left shoulder, not specified as traumatic
CPT/HCPCS: 99203

== ENCOUNTER 2024-05-15 09:51 | Outpatient (REF) | payer OTHER, SELFPAY ==
--- NOTE | ~2024-05-15 | XR_ITS ---
EXAMINATION: XR SHOULDER, RIGHT XR SHOULDER, LEFT CLINICAL INFORMATION: Bilateral shoulder pain. COMPARISON: None. TECHNIQUE: AP, Grashey, and axillary views of the right and left shoulder. FINDINGS: Right shoulder: No acute fracture or dislocation. No joint space narrowing or marginal osteophytes. No osseous erosion. No abnormal soft tissue calcification. Left shoulder: No acute fracture or dislocation. No joint space narrowing or marginal osteophytes. No osseous erosion. No abnormal soft tissue calcification. XR/XR shoulder RT min 2V IMPRESSION: RIGHT SHOULDER: Unremarkable examination. LEFT SHOULDER: Unremarkable examination.
--- NOTE | ~2024-05-15 | XR_ITS ---
EXAMINATION: XR SHOULDER, RIGHT XR SHOULDER, LEFT CLINICAL INFORMATION: Bilateral shoulder pain. COMPARISON: None. TECHNIQUE: AP, Grashey, and axillary views of the right and left shoulder. FINDINGS: Right shoulder: No acute fracture or dislocation. No joint space narrowing or marginal osteophytes. No osseous erosion. No abnormal soft tissue calcification. Left shoulder: No acute fracture or dislocation. No joint space narrowing or marginal osteophytes. No osseous erosion. No abnormal soft tissue calcification. XR/XR shoulder LT min 2V IMPRESSION: RIGHT SHOULDER: Unremarkable examination. LEFT SHOULDER: Unremarkable examination.
== END 2024-05-15 09:52 | disposition home or self-care (01) ==
LOC: HO.HOSX 09:51
PROVIDERS: PCP Physician Assistant; Visit Provider Physician Assistant
DX: M75.101 Unspecified rotator cuff tear or rupture of right shoulder, not specified as traumatic (principal); M75.102 Unspecified rotator cuff tear or rupture of left shoulder, not specified as traumatic
CPT/HCPCS: 73030; 99202

== ENCOUNTER 2024-07-16 08:50 | Outpatient (REF) | payer OTHER, SELFPAY ==
--- NOTE | ~2024-07-16 | MR_ITS ---
EXAMINATION: MR SHOULDER WITHOUT CONTRAST, RIGHT CLINICAL INFORMATION: Right shoulder pain and weakness following an injury in December 2023. Evaluate for rotator cuff tendon tear. COMPARISON: Right shoulder radiographs dated 05/15/2024. TECHNIQUE: MRI of the shoulder without contrast was performed on a high-field scanner. FINDINGS: ROTATOR CUFF: Intact. No muscle atrophy or fatty infiltration. BICEPS: Intact. CORACOACROMIAL ARCH: The undersurface of the acromion is curved with no subacromial spur. The acromioclavicular joint is normal. Small amount of fluid within subacromial subdeltoid bursa, consistent with mild bursitis. LABRUM/CAPSULE: No labral tear. Intact joint capsule. GLENOHUMERAL JOINT/MARROW: Unremarkable. MR/MR shoulder RT wo con IMPRESSION: 1. Mild subacromial subdeltoid bursitis. 2. No rotator cuff or labral tear. Electronically signed by: David Hoff MD 07/17/2024 10:27 AM EDT
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
== END 2024-07-16 08:51 | disposition home or self-care (01) ==
LOC: HO.MRI 08:50
PROVIDERS: PCP Physician Assistant; Visit Provider Physician Assistant
DX: M75.102 Unspecified rotator cuff tear or rupture of left shoulder, not specified as traumatic (principal); M75.101 Unspecified rotator cuff tear or rupture of right shoulder, not specified as traumatic
CPT/HCPCS: 73221

== ENCOUNTER 2024-08-25 09:47 | Outpatient (AMB) | payer MEDICAID, SELFPAY ==
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
== END 2024-08-25 10:04 | disposition home or self-care (01) ==
LOC: HO.HOS 09:48
PROVIDERS: PCP Physician Assistant; Visit Provider Physician Assistant
DX: M75.101 Unspecified rotator cuff tear or rupture of right shoulder, not specified as traumatic (principal); M75.102 Unspecified rotator cuff tear or rupture of left shoulder, not specified as traumatic
CPT/HCPCS: 99213

== ENCOUNTER → 2024-08-25 09:47 | Outpatient (BNVA) | payer OTHER, SELFPAY | PROVIDERS: PCP Physician Assistant; Visit Provider Physician Assistant | DX: M75.101 Unspecified rotator cuff tear or rupture of right shoulder, not specified as traumatic (principal); M75.102 Unspecified rotator cuff tear or rupture of left shoulder, not specified as traumatic | CPT/HCPCS: 99212 ==